=== PATIENT | female | born 1990 | race Two or more races ===

== ENCOUNTER 2016-05-09 14:15 | Emergency (ER) | payer SELFPAY ==
[2016-05-09 14:22] VITALS: BP 115/77; PULSE 86; TEMP 98.6; BMI 18.9
[2016-05-09] MEDS ORDERED: ONDANSETRON 4 MG/2 ML VIAL IVPB ONE (15:03)
[2016-05-09] MEDS ORDERED: SODIUM CHLORIDE 0.9% 500 ML INFUS.BAG IV ONE (15:03)
[2016-05-09] MEDS ORDERED: FAMOTIDINE 20 MG/50 ML IVPB 50 ML IVPB ONE ×2 (15:04→15:07)
[2016-05-09] MEDS ORDERED: ONDANSETRON 4 MG/2 ML VIAL ONE (15:07)
--- NOTE | 2016-05-09 15:07 | PDOC ---
History of Present Illness <Kassandra Hodge - Last Filed: 05/09/16 15:08> - History of Present Illness Initial Comments: 05/09/16 15:08 History of Present Illness <Alyson Valdez - Last Filed: 05/09/16 15:04> - History of Present Illness Initial Comments: 05/09/16 15:07 The patient is a 26 year old female with no past medical hx who presents to the ED complaining of nausea and vomiting for the past hour. The patient notes she was in her normal state of health up until this afternoon. The patient reports she had eggs, ham, peanut butter, and melon for breakfast and started to vomit a few hours later. She notes her vomiting has been constant. She states her LMP was a few days ago. She denies any sick contacts. The patient reports she recently immigrated from the [facility] on April 23, 2016. The patient reports chills but denies any fever. The patient denies hemoptysis, diarrhea, constipation, abdominal pain The patient denies chest pain, SOB, palpitations Allergies: Augmentin <Kassandra Hodge - Last Filed: 05/09/16 15:08> <Alyson Valdez - Last Filed: 05/11/16 07:52> - General Chief Complaint: Nausea/Vomiting Stated Complaint: VOMITING, ABD PAIN Time Seen by Provider: 05/09/16 14:47 Past History <Kassandra Hodge - Last Filed: 05/09/16 15:08> - Past Medical History Asthma: Yes - Psycho/Social/Smoking Cessation Hx Anxiety: No Suicidal Ideation: No Smoking History: Never smoked Hx Alcohol Use: No Drug/Substance Use Hx: No <Alyson Valdez - Last Filed: 05/11/16 07:52> - Past Medical History Allergies/Adverse Reactions: Allergies Allergy/AdvReac Type Severity Reaction Status Date / Time amoxicillin trihydrate Allergy Verified 05/09/16 18:08 [From Augmentin] potassium clavulanate Allergy Verified 05/09/16 18:08 [From Augmentin] Home Medications: Ambulatory Orders Ondansetron [Zofran Odt -] 4 mg SL TID PRN #21 od.tablet 05/09/16 Pantoprazole Sodium [Protonix -] 40 mg PO DAILY #7 tablet.ec 05/09/16 Review of Systems - Review of Systems Able to Perform ROS?: Yes Comments:: 05/09/16 15:07 Remainder of the review of systems is negative - HPI 12 point review of systems is as per history of present illness and otherwise negative <AyeshaKassandra - Last Filed: 05/09/16 15:08> *Physical Exam - Vital Signs Last Vital Signs Temp Pulse Resp BP Pulse Ox 98.6 F 86 18 115/77 100 05/09/16 14:15 05/09/16 14:15 05/09/16 14:15 05/09/16 14:15 05/09/16 14:15 <Kassandra Hodge - Last Filed: 05/09/16 15:08> - Vital Signs Last Vital Signs Temp Pulse Resp BP Pulse Ox 98.6 F 86 18 115/77 100 05/09/16 14:15 05/09/16 14:15 05/09/16 14:15 05/09/16 14:15 05/09/16 14:15 - Physical Exam Comments: 05/09/16 15:04 Physical exam Last Vital Signs Temp Pulse Resp BP Pulse Ox 98.6 F 86 18 115/77 100 05/09/16 14:15 05/09/16 14:15 05/09/16 14:15 05/09/16 14:15 05/09/16 14:15 GENERAL: The patient is awake, alert, and actively retching HEAD: Normal with no signs of trauma. EYES: Sclera anicteric, conjunctiva normal ENT: Mucous membranes sl dry NECK: Normal range of motion, supple LUNGS: Breath sounds equal, clear to auscultation bilaterally. No wheezes, and no crackles. HEART: Regular rate and rhythm, normal S1 and S2 without murmur, rub or gallop. ABDOMEN: Normal active bowel sounds without hepatosplenomegaly Abdomen is soft with minimal upper midepigastric tenderness, without guarding or rebound No other abdominal tenderness is noted EXTREMITIES: Normal range of motion, no edema. No clubbing or cyanosis. No cords, erythema, or tenderness. NEUROLOGICAL: Cranial nerves II through XII grossly intact. Normal speech, normal gait. Alert and answering questions, grossly non-focal neurologic exam PSYCH: Normal mood, normal affect. SKIN: Warm, Dry, <Daniels-Latanya,Alyson - Last Filed: 05/11/16 07:52> ED Treatment Course - Medications Given in the ED: ED Medications Discontinued Medications Generic Name Dose Route Start Last Admin Trade Name Esdras PRN Reason Stop Dose Admin Sodium Chloride 1,000 ml 05/09/16 15:03 05/09/16 14:45 Normal Saline - IV 05/09/16 15:04 1,000 ml ONCE ONE Administration <Kassandra Hodge - Last Filed: 05/09/16 15:08> - LABORATORY CBC & Chemistry Diagram: 05/09/16 17:15 05/09/16 15:00 <Alyson Valdez - Last Filed: 05/11/16 07:52> Medical Decision Making - Medical Decision Making 05/09/16 15:06 26-year-old female who came from the [facility] on April 23, and was doing well She ate a very large breakfast this morning at approximately an hour or 2 later developed nausea and vomiting, and vomited multiple times There was no diarrhea, no fever, although she is having some chills now There are no other sick contacts There is no blood in the vomitus 05/09/16 17:56 Patient feeling much better after 2 L of normal saline, and medications Still having some GERD Tolerating clear liquids Repeat WBC improving after hydration and medications Laboratory Results - last 24 hr 05/09/16 05/09/16 05/09/16 15:00 15:00 15:00 WBC 22.0 H RBC 4.90 Hgb 13.3 Hct 41.8 MCV 85.3 MCHC 31.8 L RDW 12.4 Plt Count 346 MPV 8.8 Neutrophils % 74.0 Lymphocytes % 7.0 L Monocytes % 9.0 Band Neutrophils 10.0 Sodium 137 Potassium 3.5 Chloride 102 Carbon Dioxide 25 Anion Gap 10 BUN 12 Creatinine 0.6 Creat Clearance w eGFR > 60 Random Glucose 131 H Calcium 9.1 Magnesium 1.9 Total Bilirubin 0.5 AST 33 ALT 19 Alkaline Phosphatase 44 Total Protein 7.8 Albumin 4.3 Lipase 34 Serum , Qual Negative Urine Color Urine Appearance Urine pH Ur Specific [place] Urine Protein Urine Glucose (UA) Urine Ketones Urine Blood Urine Nitrite Urine Bilirubin Urine Urobilinogen Ur Leukocyte Esterase 05/09/16 05/09/16 16:47 17:15 WBC 18.0 H RBC 4.49 Hgb 12.6 Hct 38.3 MCV 85.2 MCHC 32.9 RDW 12.6 Plt Count 305 MPV 8.4 Neutrophils % Lymphocytes % Monocytes % Band Neutrophils Sodium Potassium Chloride Carbon Dioxide Anion Gap BUN Creatinine Creat Clearance w eGFR Random Glucose Calcium Magnesium Total Bilirubin AST ALT Alkaline Phosphatase Total Protein Albumin Lipase Serum , Qual Urine Color Yellow Urine Appearance Clear Urine pH 7.5 Ur Specific [place] 1.015 Urine Protein Negative Urine Glucose (UA) Negative Urine Ketones 2+ H Urine Blood Trace-intact Urine Nitrite Negative Urine Bilirubin Negative Urine Urobilinogen 0.2 e.u/dl Ur Leukocyte Esterase Negative Two-view abdomen flat and upright-normal 05/09/16 18:06 Impression-vomiting <Alyson Valdez - Last Filed: 05/11/16 07:52> *DC/Admit/Observation/Transfer - Attestations Scribe Attestion: 05/09/16 15:07 Documentation prepared by Kassandra Hodge, acting as medical support specialist for Alyson Valdez MD/DO. <Kassandra Hodge - Last Filed: 05/09/16 15:08> <Alyson Valdez - Last Filed: 05/11/16 07:52> Diagnosis at time of Disposition: Vomiting, Mild dehydration - Discharge Dispostion Disposition: HOME Condition at time of disposition: Improved - Prescriptions Prescriptions: Pantoprazole Sodium [Protonix -] 40 mg PO DAILY #7 tablet.ec Ondansetron [Zofran Odt -] 4 mg SL TID PRN #21 od.tablet PRN Reason: Nausea And/Or Vomiting - Patient Instructions Printed Discharge Instructions: DI for Vomiting -- Adult, DI for Nausea -- Adult Additional Instructions: Clear liquid diet for the next 24 hours- broth, Jell-O, tea, Pedialyte, Gatorade Then you may gradually increase diet as directed Zofran as directed for nausea-one pill and to your tongue every 6-8 hours if needed Protonix-one pill daily for the next week- start tomorrow Followup with your primary care physician in 24-48 hours Return immediately if you worsen in any way Take your medications as directed - Post Discharge Activity Work/School Note: Back to Work
[2016-05-09] MEDS ORDERED: SODIUM CHLORIDE 1,000 ML IV SCH (15:15)
[2016-05-09 15:31] LABS: ALBUMIN 4.3 g/dl (3.5-5.0); ALK PHOS 44 U/L (32-92); ANION GAP 10 (8-16); BILIRUBIN,TOTAL 0.5 mg/dl (0.2-1.0); CALCIUM 9.1 mg/dl (8.4-10.2); CO2 25 mmol/L (22-28); CREATININE 0.6 mg/dl (0.6-1.3); GLUCOSE,RANDOM 131 mg/dl (74-106); MAGNESIUM 1.9 mg/dL (1.8-2.4); SGOT/AST 33 U/L (10-42); SGPT/ALT 19 U/L (10-40); TOT PROT 7.8 g/dl (6.4-8.3)
[2016-05-09 15:33] LABS: MCH 27.1 pg (25.7-33.7); MCHC 31.8 g/dl (32.0-36.0); MEAN CELL VOLUME 85.3 fl (80-96); MEAN PLT VOLUME 8.8 fl (7.5-11.1); PLATELET COUNT 346 K/MM3 (134-434); RDW 12.4 % (11.6-15.6)
[2016-05-09] MEDS ORDERED: MAG HYDROX/AL HYDROX/SIMETH 355 ML ORAL.SUSP PO ONE (15:55)
[2016-05-09] MEDS ORDERED: MAG HYDROX/AL HYDROX/SIMETH 30 ML UNIT-DOSE CUP ONE (16:00)
[2016-05-09 16:58] LABS: PH,URINE 7.5 (4.5-8); URINE APPEARANCE Clear; URINE BILIRUBIN Negative (NEGATIVE); URINE BLOOD Trace-intact (NEGATIVE); URINE COLOR YELLOW; URINE GLUCOSE (UA) Negative (NEGATIVE); URINE KETONE 2+ (NEGATIVE); URINE LEUK ESTERASE Negative (NEGATIVE); URINE NITRITE Negative (NEGATIVE); URINE PROTEIN Negative (NEGATIVE); URINE UROBILINOGEN 0.2 E.U/dl (0.2-1.0)
[2016-05-09 17:44] LABS: MCHC 32.9 g/dl (32.0-36.0); MEAN CELL VOLUME 85.2 fl (80-96); MEAN PLT VOLUME 8.4 fl (7.5-11.1); PLATELET COUNT 305 K/MM3 (134-434); RDW 12.6 % (11.6-15.6)
[2016-05-09] MEDS ORDERED: PANTOPRAZOLE SODIUM 40 MG VIAL ONE (17:55)
[2016-05-09] MEDS ORDERED: PANTOPRAZOLE SODIUM 40 MG in SODIUM CHLORIDE 100 ML IVPB ONE (17:56)
== END 2016-05-09 18:15 | disposition home or self-care (01) ==
LOC: FER 14:15
DX: E86.0 Dehydration (principal); R11.10 Vomiting, unspecified
CPT/HCPCS: 36415; 74020-TC; 80053; 81003; 83690; 83735; 84703; 85027; 99284-25